=== PATIENT | female | born 1995 | race Caucasian/White ===

== ENCOUNTER 2018-08-18 13:02 | Emergency (ER) | payer OTHER ==
[2018-08-18 13:25] VITALS: BP 123/62
--- NOTE | 2018-08-18 13:59 | UC ---
Throat Pain/Nasal Sheldon HPI - HPI Summary HPI Summary: sore throat x 3 days no cough , no runny nose or congestion + body aches concern about strep throat - History of Current Complaint Chief Complaint: UCRespiratory Stated Complaint: SORE THROAT RUNNY NOSE Time Seen by Provider: 08/18/18 13:40 Hx Obtained From: Patient Hx Last Menstrual Period: 08/04/18 Onset/Duration: Gradual Onset, Lasting Days - 3, Still Present Severity: Moderate Pain Intensity: 4 Cough: None Associated Signs & Symptoms: Negative: Dysphagia, FB Sensation, Drooling, Wheezing, Hoarseness, Sinus Discomfort, Nasal Discharge, Fever, Vomiting, Rash - Allergies/Home Medications Allergies/Adverse Reactions: Allergies Allergy/AdvReac Type Severity Reaction Status Date / Time No Known Allergies Allergy Verified 08/18/18 13:21 Home Medications: Home Medications NK [No Home Medications Reported] 08/18/18 [History Confirmed 08/18/18] PMH/Surg Hx/FS Hx/Imm Hx Previously Healthy: Yes - Surgical History Surgical History: Yes Surgery Procedure, Year, and Place: x2, 10/2013, [facility] - Family History Known Family History: Positive: Hypertension - Social History Alcohol Use: None Substance Use Type: None Smoking Status (MU): Light Every Day Tobacco Smoker Type: Cigarettes Amount Used/How Often: 5-6 cigarettes daily Have You Smoked in the Last Year: Yes Household Exposure Type: Cigarettes - Immunization History Most Recent Influenza Vaccination: NOT IN 2013 Review of Systems All Other Systems Reviewed And Are Negative: Yes Constitutional: Positive: Negative Skin: Positive: Negative Eyes: Positive: Negative ENT: Positive: Sore Throat Respiratory: Positive: Negative Is Patient Immunocompromised?: No Physical Exam Triage Information Reviewed: Yes Appearance: Well-Appearing, No Pain Distress, Well-Nourished Vital Signs: Initial Vital Signs Temp 98 F 08/18/18 13:21 Pulse 91 08/18/18 13:21 Resp 16 08/18/18 13:21 BP 123/62 08/18/18 13:21 Pulse Ox 98 08/18/18 13:21 Vital Signs Reviewed: Yes Eye Exam: Normal Eyes: Positive: Conjunctiva Clear ENT: Positive: Normal ENT inspection, Hearing grossly normal, Pharyngeal erythema, TMs normal. Negative: Nasal congestion, Nasal drainage, Tonsillar swelling, Tonsillar exudate Neck: Positive: Supple, Nontender, No Lymphadenopathy Respiratory: Positive: Chest non-tender, Lungs clear, Normal breath sounds Cardiovascular: Positive: RRR, No Murmur, Pulses Normal Abdominal Exam: Normal Skin Exam: Normal Throat Pain/Nasal Course/Dx - Differential Dx/Diagnosis Provider Diagnosis: Viral pharyngitis Discharge - Sign-Out/Discharge Documenting (check all that apply): Patient Departure All imaging exams completed and their final reports reviewed: No Studies - Discharge Plan Condition: Stable Disposition: HOME Patient Education Materials: Pharyngitis (ED) Referrals: No Primary Care Phys,NOPCP [Primary Care Provider] - If Needed Additional Instructions: negative Rapid Strep viral pharyngitis no need for antibiotics - Billing Disposition and Condition Condition: STABLE Disposition: Home
== END 2018-08-18 14:02 | disposition home or self-care (01) ==
LOC: UCCORT 13:02
DX: J06.9 Acute upper respiratory infection, unspecified (principal); F17.210 Nicotine dependence, cigarettes, uncomplicated
CPT/HCPCS: 87651; 99211; G0463

== ENCOUNTER 2018-11-16 18:34 | Emergency (ER) | payer OTHER ==
[2018-11-16 19:32] VITALS: BP 121/76
--- NOTE | 2018-11-16 20:10 | UC ---
Complaint Female HPI - HPI Summary HPI Summary: Pt states after she has intercourse, she has noticed a bad smell. Pt is sexually active with just one other female who has no symptoms of illness. She has noticed darker urine than normal but no other urinary symptoms. - History Of Current Complaint Chief Complaint: UCGU Stated Complaint: PERSONAL Time Seen by Provider: 11/16/18 19:32 Hx Obtained From: Patient Hx Last Menstrual Period: 10/21/18 ?: No Onset/Duration: Gradual Onset Severity Initially: Mild Severity Currently: Mild - Pt denies any pain Pain Intensity: 2 Aggravating Factor(s): Gonzalez - Noted a bad smell after intercourse Alleviating Factor(s): Nothing Associated Signs And Symptoms: Positive: Negative. Negative: Vaginal Bleeding/ Discharge, Vaginal Discharge, Genital Swelling, Genital Blisters - Risk Factors Ectopic Risk Factor: Negative Ovarian Torsion Risk Factor: Negative - Allergies/Home Medications Allergies/Adverse Reactions: Allergies Allergy/AdvReac Type Severity Reaction Status Date / Time No Known Allergies Allergy Verified 11/16/18 19:28 PMH/Surg Hx/FS Hx/Imm Hx Previously Healthy: Yes - Surgical History Surgical History: Yes Surgery Procedure, Year, and Place: x2, 10/2013, [facility] - Family History Known Family History: Positive: Hypertension - Social History Alcohol Use: None Substance Use Type: None Smoking Status (MU): Light Every Day Tobacco Smoker Type: Cigarettes Amount Used/How Often: 5-6 cigarettes daily Have You Smoked in the Last Year: Yes Household Exposure Type: Cigarettes - Immunization History Most Recent Influenza Vaccination: NOT IN 2013 Review of Systems All Other Systems Reviewed And Are Negative: Yes Genitourinary: Negative: Vaginal/Penile Burning, Vaginal/Penile Itching, Vaginal /Penile Discharge, Vaginal/Penile Pain, Vaginal/Penile Tenderness Is Patient Immunocompromised?: No Physical Exam Triage Information Reviewed: Yes Appearance: Well-Appearing, No Pain Distress, Well-Nourished Vital Signs: Initial Vital Signs Temp 97.7 F 11/16/18 19:28 Pulse 90 11/16/18 19:28 Resp 16 11/16/18 19:28 BP 121/76 11/16/18 19:28 Pulse Ox 99 11/16/18 19:28 Vital Signs Reviewed: Yes Eyes: Positive: Conjunctiva Clear ENT: Positive: Hearing grossly normal, Pharynx normal, TMs normal, Uvula midline Neck: Positive: Supple, Nontender, No Lymphadenopathy Respiratory: Positive: Lungs clear, Normal breath sounds, No respiratory distress, No accessory muscle use Cardiovascular: Positive: RRR, No Murmur, Pulses Normal, Brisk Capillary Refill Abdomen Description: Positive: Nontender, No Organomegaly, Soft Bowel Sounds: Positive: Present Pelvic Exam: Positive: External Exam Normal, Speculum Exam Normal, No Cerv. Motion Tender, Discharge - Small amount of milky white discharge. Negative: Tender w/ Cervical Motion, Tender Adnexa, Tender Uterus Musculoskeletal Exam: Normal Neurological Exam: Normal Psychological Exam: Normal Skin Exam: Normal Complaint Female Dx - Course Course Of Treatment: Pt comfortable here. She has had BV in the past. She tolerated the pelvic exam without difficulty. At this point in time, the patient would rather wait until the culture results are back. - Differential Dx/Diagnosis Differential Diagnosis/HQI/PQRI: Urinary Tract Infection Provider Diagnosis: Vaginal discharge Discharge - Sign-Out/Discharge Documenting (check all that apply): Patient Departure All imaging exams completed and their final reports reviewed: No Studies - Discharge Plan Condition: Good Disposition: HOME Patient Education Materials: Sexually Transmitted Diseases (ED) Referrals: No Primary Care Phys,NOPCP [Primary Care Provider] - [facility] [Outside] Additional Instructions: We will call you with the results of the cultures. No sex until you find out those result. - Billing Disposition and Condition Condition: GOOD Disposition: Home
[2018-11-18 13:18] LABS: Neisseria gonorrhoeae (GC) RNA Negative (Negative)
[2018-11-18 13:43] LABS: Trichomonas vaginalis Result Negative (Negative)
--- NOTE | 2018-11-19 07:29 | ED ---
Progress - Progress Note Progress Note: Urine positive for E coli. Script for Keflex sent in Course/Dx - Diagnoses Provider Diagnoses: Vaginal discharge Discharge - Sign-Out/Discharge Documenting (check all that apply): Patient Departure All imaging exams completed and their final reports reviewed: No Studies - Discharge Plan Condition: Good Disposition: HOME Prescriptions: Cephalexin CAP* [Keflex CAP*] 500 mg PO TID #14 cap Patient Education Materials: Sexually Transmitted Diseases (ED) Referrals: [facility] [Outside] No Primary Care Phys,NOPCP [Primary Care Provider] - Additional Instructions: We will call you with the results of the cultures. No sex until you find out those result. - Billing Disposition and Condition Condition: GOOD Disposition: Home
== END 2018-11-16 20:18 | disposition home or self-care (01) ==
LOC: UCCORT 18:34
DX: N89.8 Other specified noninflammatory disorders of vagina (principal); F17.210 Nicotine dependence, cigarettes, uncomplicated
CPT/HCPCS: 81003; 84702; 87077; 87086; 87186; 87480; 87491; 87510; 87591; 87661; 99212; G0463

== ENCOUNTER 2019-02-18 09:46 | Emergency (ER) | payer OTHER ==
[2019-02-18 10:06] VITALS: BP 105/52
--- NOTE | 2019-02-18 10:37 | UC ---
Back Pain HPI - HPI Summary HPI Summary: Pt presents with c/o sudden onset of low back pain that worsened after falling while hiking two days ago. Pt had one episode of dysuria last week but has since resolved. Pt denies risk for , is in same sex relationship, - History of Current Complaint Chief Complaint: UCBackPain Stated Complaint: LOWER BACK PAIN Time Seen by Provider: 02/18/19 10:25 Hx Obtained From: Patient Hx Last Menstrual Period: 01/17/19 ?: No Onset/Duration: Sudden Onset, Lasting Days, Still Present, Worse Since - two days ago Timing: Constant Severity Initially: Mild Severity Currently: Moderate Pain Intensity: 6 Back Pain: Is Discrete @ - low back, Radiates To - horizonatally and through buttock clefts Character: Dull, Aching, Stiffness Aggravating Factor(s): Movement, Lifting, Bending, Other - sitting Alleviating Factor(s): Rest, Position Associated Signs And Symptoms: Positive: Negative - Risk Factors AAA Risk Factors: Negative TAD Risk Factors: Negative Cauda Equina Risk Factors: Negative Epidural Abscess Risk Factors: Negative - Allergies/Home Medications Allergies/Adverse Reactions: Allergies Allergy/AdvReac Type Severity Reaction Status Date / Time No Known Allergies Allergy Verified 02/18/19 09:57 Home Medications: Home Medications NK [No Home Medications Reported] 02/18/19 [History Confirmed 02/18/19] PMH/Surg Hx/FS Hx/Imm Hx Previously Healthy: Yes - Surgical History Surgical History: Yes Surgery Procedure, Year, and Place: x2, 10/2013, [facility] - Family History Known Family History: Positive: Hypertension - Social History Occupation: Employed Full-time Lives: With Family Alcohol Use: Rare Substance Use Type: None Smoking Status (MU): Light Every Day Tobacco Smoker Type: Cigarettes Amount Used/How Often: 5-6 cigarettes daily Have You Smoked in the Last Year: Yes Household Exposure Type: Cigarettes - Immunization History Most Recent Influenza Vaccination: NOT IN 2013 Vaccination Up to Date: Yes Review of Systems All Other Systems Reviewed And Are Negative: Yes Constitutional: Positive: Negative Skin: Positive: Negative Eyes: Positive: Negative ENT: Positive: Negative Respiratory: Positive: Negative Cardiovascular: Positive: Negative Gastrointestinal: Positive: Negative Genitourinary: Positive: Negative Motor: Positive: Negative Neurovascular: Positive: Negative Musculoskeletal: Positive: Arthralgia, Myalgia Neurological: Positive: Negative Psychological: Positive: Negative Is Patient Immunocompromised?: No Physical Exam Triage Information Reviewed: Yes Appearance: Well-Appearing Vital Signs: Initial Vital Signs Temp 98.2 F 02/18/19 09:57 Pulse 81 02/18/19 09:57 Resp 16 02/18/19 09:57 BP 105/52 02/18/19 09:57 Pulse Ox 99 02/18/19 09:57 Vital Signs Reviewed: Yes Eye Exam: Normal ENT Exam: Normal Dental Exam: Normal Neck exam: Normal Respiratory Exam: Normal Cardiovascular Exam: Normal Abdominal Exam: Normal Abdomen Description: Positive: Nontender Musculoskeletal Exam: Normal Musculoskeletal: Positive: Strength Intact, ROM Intact, No Edema Neurological Exam: Normal Psychological Exam: Normal Skin Exam: Normal Diagnostics - Radiology No standard instances Radiology Interpretation Completed By: Radiologist - IMPRESSION: #. Negative exam. Back Pain Course/Dx - Course Course Of Treatment: I discussed with the pt if her symptoms worsened to go directly to the closest emergency room. Pt verbalized understanding and agreed to plan of care. - Differential Dx/Diagnosis Differential Diagnosis/HQI/PQRI: Cauda Equina Syndrome, Strain, Sprain Provider Diagnosis: Low back pain Discharge - Sign-Out/Discharge Documenting (check all that apply): Patient Departure All imaging exams completed and their final reports reviewed: Yes - Discharge Plan Condition: Stable Disposition: HOME Patient Education Materials: Acute Low Back Pain (ED), Lower Back Exercises (ED ) Forms: *Work Release Referrals: [facility] [place] [facility] [Outside] No Primary Care Phys,NOPCP [Primary Care Provider] - - Billing Disposition and Condition Condition: STABLE Disposition: Home
--- NOTE | 2019-02-20 07:35 | ED ---
Progress - Progress Note Progress Note: back pain, Urine obtained. E coli . 100,000. bactrim DS called in. Nurses aware. Course/Dx - Diagnoses Provider Diagnoses: Low back pain Discharge - Sign-Out/Discharge Documenting (check all that apply): Post-Discharge Follow Up All imaging exams completed and their final reports reviewed: Yes - Discharge Plan Condition: Stable Disposition: HOME Prescriptions: Sulfamethox/Trimethoprim DS* [Bactrim DS 800/160 TAB*] 1 tab PO BID #10 tab Patient Education Materials: Acute Low Back Pain (ED), Lower Back Exercises (ED ) Forms: *Work Release Referrals: [facility] [place] [facility] [Outside] No Primary Care Phys,NOPCP [Primary Care Provider] - - Billing Disposition and Condition Condition: STABLE Disposition: Home
--- NOTE | 2019-02-22 07:22 | ED ---
Progress - Progress Note Progress Note: back pain, Urine obtained. E coli . 100,000. bactrim DS called in. Nurses aware. The E coli is resistant to Bactrim. Augmentin sent to pharmacy. Nurses aware to call and update patient. Course/Dx - Diagnoses Provider Diagnoses: Low back pain Discharge - Sign-Out/Discharge Documenting (check all that apply): Patient Departure All imaging exams completed and their final reports reviewed: Yes - Discharge Plan Condition: Stable Disposition: HOME Prescriptions: Sulfamethox/Trimethoprim DS* [Bactrim DS 800/160 TAB*] 1 tab PO BID #10 tab Patient Education Materials: Acute Low Back Pain (ED), Lower Back Exercises (ED ) Forms: *Work Release Referrals: [facility] [facility] [Outside] No Primary Care Phys,NOPCP [Primary Care Provider] - - Billing Disposition and Condition Condition: STABLE Disposition: Home
== END 2019-02-18 11:55 | disposition home or self-care (01) ==
LOC: UCCORT 09:46
DX: M54.5 Low back pain (principal); B96.20 Unspecified Escherichia coli [E. coli] as the cause of diseases classified elsewhere; Z16.29 Resistance to other single specified antibiotic; F17.210 Nicotine dependence, cigarettes, uncomplicated
CPT/HCPCS: 72220; 81003; 87077; 87086; 87186; 99211; G0463

== ENCOUNTER 2019-06-10 16:19 | Emergency (ER) | payer MEDICAID, OTHER ==
[2019-06-10 17:12] VITALS: BP 120/63
--- NOTE | 2019-06-10 17:49 | UC ---
Psychiatric Complaint HPI - HPI Summary HPI Summary: Per deck worker: "History of anxiety, was never medicated for it but has worsening panic attacks. Was seen at [facility] on Friday and given xanax 0.25MG PO q8hr PRN with 10 tablets. Made follow up appointment with RMP for 06/16/19. " -denies depression. no manic sx. denies sleepless nights (sleeps well), no shoping sprees, doesnt feel invinclibel or thoughts of delusions or paranioa. -denies SI/HI -feels like life is going well - good support system with her GF, kids and mom -asks for more xanax bc it helps immediately. -states that she doesnt want to take it but feels like she has had to. -she went back to the ER toask for more and they refused. she was adv to take benadyl for panic sx. she was told that she should talk to somone and she refsues bc she states there is no reason. she says that she has a great support system w/ girlfriend, kids and Mom. has a good job and doesnt feel anything is stressing her. sx started the other day when she was lying on her mom's couch. they came out of "nowhere". -hasnt had a PCP in years. -she had neg cardaic w/u at ER she reports. but no labs were done. recommend she has TFTs and lytes doen at f/u w/ [facility] pcp labs. - History Of Current Complaint Chief Complaint: UCPsych Stated Complaint: ANXIETY Time Seen by Provider: 06/10/19 17:31 Hx Last Menstrual Period: 05/2019 - Allergies/Home Medications Allergies/Adverse Reactions: Allergies Allergy/AdvReac Type Severity Reaction Status Date / Time No Known Allergies Allergy Verified 06/10/19 17:10 PMH/Surg Hx/FS Hx/Imm Hx Previously Healthy: Yes Psychological History: Anxiety - Surgical History Surgical History: Yes Surgery Procedure, Year, and Place: x2, 10/2013, [facility] - Family History Known Family History: Positive: Hypertension - Social History Alcohol Use: Rare Substance Use Type: None Smoking Status (MU): Light Every Day Tobacco Smoker Type: Cigarettes Amount Used/How Often: 5-6 cigarettes daily Have You Smoked in the Last Year: Yes Household Exposure Type: Cigarettes - Immunization History Most Recent Influenza Vaccination: NOT IN 2014 Vaccination Up to Date: Yes Review of Systems All Other Systems Reviewed And Are Negative: Yes Constitutional: Positive: Negative Skin: Positive: Negative. Negative: Rash Eyes: Positive: Negative ENT: Positive: Negative Respiratory: Positive: Shortness Of Breath - w/ panic Cardiovascular: Positive: Palpitations - w/ panic, none now Gastrointestinal: Positive: Negative Genitourinary: Positive: Negative Motor: Positive: Negative Neurovascular: Positive: Negative Musculoskeletal: Positive: Negative Neurological: Positive: Negative Psychological: Positive: Negative Is Patient Immunocompromised?: No Physical Exam Triage Information Reviewed: Yes Appearance: Well-Appearing, No Pain Distress, Well-Nourished Vital Signs: Initial Vital Signs Temp 99.6 F 06/10/19 17:04 Pulse 85 06/10/19 17:04 Resp 15 06/10/19 17:04 BP 120/63 06/10/19 17:04 Pulse Ox 100 06/10/19 17:04 Eye Exam: Normal Neck exam: Normal Neck: Positive: Supple Respiratory Exam: Normal Respiratory: Positive: Lungs clear Cardiovascular Exam: Normal Cardiovascular: Positive: RRR, No Murmur, Pulses Normal, Brisk Capillary Refill Musculoskeletal Exam: Normal Neurological Exam: Normal Psychological Exam: Normal Psych Complaint Course/Dx - Course Course Of Treatment: Anxiety/panic -no nbenzos given depsite her requesting 3 times. not indicated for daily treatment of anxiety. extsnively discssed anx/ SSRI/SEs and potential issues w/ dep/SI. she understiood me well and was agreeable w/ starting. she already has f /u w/ new PCP on the . went back to ER to ask for more xanax and they denies her. she felt "offended". recommend therapy but she adamntly refsues that she needs it nor does she think it will be beneficial. -denies sx of deppression/bipolar. denies fhx psychosis/bipolar - Differential Dx/Diagnosis Differential Diagnosis/HQI/PQRI: Anxiety, Bipolar Disorder, Depression Provider Diagnosis: Anxiety Discharge ED - Sign-Out/Discharge Documenting (check all that apply): Patient Departure All imaging exams completed and their final reports reviewed: No Studies - Discharge Plan Condition: Stable Disposition: HOME Prescriptions: FLUoxetine CAP* [Prozac CAP*] 10 mg PO DAILY #15 cap Patient Education Materials: Anxiety (ED) Referrals: No Primary Care Phys,NOPCP [Primary Care Provider] - Additional Instructions: We talked extensively today about appropriate treatment for anxiety and that benzodiazepenes are not indicated as first line treatment. We talked about how SSRIs such as flouxetine (prozac) work. There is a black box warning on all meds in this class for possible increased risk of depression and suicidal thoughts. If this happens, stop immediately and call 911. We talked about the role of therapy to help with tools to reduce panic symptoms, although you voiced that this is not indicated for you. Possible side effects of meds include fogginess, nausea, fatigue and dizziness. They usually resolve within 1 week if they are to occur and are dose dependent. You agreed to be started on fluoxetine today after reviewing these factors. We are starting with a very low dose at 10mgs. I have given you enough for 15 days that should be plenty until you see your new PCP on 06/16. He/she may chose to increase your dose at that time if you are tolerating it well as the next dose up will likely be more effective for you. 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 - Billing Disposition and Condition Condition: STABLE Disposition: Home
== END 2019-06-10 18:07 | disposition home or self-care (01) ==
LOC: UCCORT 16:19
DX: F41.9 Anxiety disorder, unspecified (principal); F17.210 Nicotine dependence, cigarettes, uncomplicated
CPT/HCPCS: 99212; G0463